=== PATIENT | male | born 1995 | race Caucasian/White ===

== ENCOUNTER 2023-09-02 18:37 | Emergency (ER) | payer SELFPAY ==
[~2023-09-02] VITALS: Ht 157.5 cm; Wt 63.5 kg
[2023-09-02 19:02] VITALS: BP 101/68; PULSE 81; RESP 16; TEMP 97.5; O2SAT 98
== END 2023-09-02 20:20 ==
LOC: MED 18:37
DX: F10.129 Alcohol abuse with intoxication, unspecified (principal); Y90.9 Presence of alcohol in blood, level not specified; V49.88XA Car occupant (driver) (passenger) injured in other specified transport accidents, initial encounter; Y93.89 Activity, other specified; Y92.89 Other specified places as the place of occurrence of the external cause; Y99.8 Other external cause status
CPT/HCPCS: 99283